=== PATIENT | female | born 1995 | race American Indian/Alaskan Native ===

== ENCOUNTER 2018-08-04 11:46 | Day surgery (SDC) | payer OTHER ==
[2018-08-04] MEDS ORDERED: MYDRIACYL OD ONE (11:55)
[2018-08-04] MEDS ORDERED: IOPIDINE OD ONE (11:55)
[2018-08-04] MEDS ORDERED: AK-Dilate OD ONE (11:55)
[2018-08-04 12:24] VITALS: BP 108/72
[2018-08-04] MEDS ORDERED: AK-Dilate ONE (15:14)
[2018-08-04] MEDS ORDERED: IOPIDINE ONE (15:14)
[2018-08-04] MEDS ORDERED: MYDRIACYL ONE (15:14)
== END 2018-08-04 12:55 | disposition home or self-care (01) ==
LOC: OR 11:46
PROVIDERS: ATTEND Specialist
DX: H26.491 Other secondary cataract, right eye (principal); Z79.899 Other long term (current) drug therapy; Z98.42 Cataract extraction status, left eye; Z98.41 Cataract extraction status, right eye; Z72.89 Other problems related to lifestyle; Z98.890 Other specified postprocedural states